=== PATIENT | female | born 1970 | race Caucasian/White ===

== ENCOUNTER 2018-01-01 17:15 | Emergency (ER) | payer OTHER ==
[2018-01-01] MEDS ORDERED: Sodium Chloride 0.9% 500 ML IV STA (18:56)
[2018-01-01 19:26] LABS: BASO # 0.1 K/uL (0.0-0.2); BASO % 1.2 % (0.0-2.0); EOS # 0.2 K/uL (0.0-0.7); EOS % 1.8 % (0.0-4.0); HEMOGLOBIN 10.6 g/dL (12.0-16.0); LYMPH # 1.9 K/uL (1.0-4.3); LYMPH % 20.7 % (20.0-40.0); MEAN CELL VOLUME 62.8 fl (81.0-99.0); MEAN CORPUSCULAR HEMOGLOBIN 19.2 pg (27.0-31.0); MEAN CORPUSCULAR HGB CONC 30.6 g/dL (33.0-37.0); MEAN PLATELET VOLUME 9.7 fl (7.2-11.7); MONO # 0.6 K/uL (0.0-0.8); MONO % 6.2 % (0.0-10.0); NEUT # 6.5 K/uL (1.8-7.0); NEUT % 70.1 % (50.0-75.0); RBC 5.54 Mil/uL (3.80-5.20); RED CELL DISTRIBUTION WIDTH 22.2 % (11.5-14.5); WHITE BLOOD COUNT 9.3 K/uL (4.8-10.8)
--- NOTE | 2018-01-01 19:32 | ED PDOC ---
Syncope/Near Syncope/Dizziness Time Seen by Provider: 01/01/18 18:40 Chief Complaint (Nursing): Abdominal Pain Chief Complaint (Provider): Dizziness History Per: Patient History/Exam Limitations: no limitations Onset/Duration Of Symptoms: Days (1) Additional History Per: Patient Additional Complaint(s): 47yo female, with history of hypertension, asthma, presents to ED with complaints of vertiginous dizziness since yesterday. She reports associated nausea, mild headache, generalized weakness and states she feels tired. She denies any vomiting, abdominal pain. She does report decreased PO intake and decreased appetite due to nausea. Patient states the dizziness worsens with moving her head up or down, and changing positions from laying flat to sitting upright. She denies any focal weaknesses or numbness. Patient also denies any head injury, fall, fever, chills, tinnitus, recent URI symptoms. She has no other medical complaints. Past Medical History Reviewed: Historical Data, Nursing Documentation, Vital Signs Vital Signs: Last Vital Signs Temp 98.6 F 01/01/18 17:59 Pulse 72 01/01/18 17:59 Resp 16 01/01/18 17:59 BP 124/80 01/01/18 17:59 Pulse Ox 98 01/01/18 17:59 - Medical History PMH: Gall Bladder Disease, HTN (Not on medication now) Denies: Chronic Kidney Disease - Surgical History Surgical History: Cholecystectomy, (x 3) - Family History Family History: States: Diabetes, Hypertension - Living Arrangements Living Arrangements: With Family - Social History Current smoker - smoking cessation education provided: Yes Alcohol: Occasional Drugs: Denies - Home Medications Home Medications: Ambulatory Orders Medication Instructions Recorded Famotidine [Pepcid] 20 mg PO DAILY PRN #6 tab 06/12/15 Cyclobenzaprine [Cyclobenzaprine 10 mg PO BID #14 tab 01/16/16 HCl] Ibuprofen [Motrin] 400 mg PO Q6 #30 tab 01/16/16 Cyclobenzaprine [Cyclobenzaprine 10 mg PO TID PRN #20 tab 07/27/16 HCl] Naproxen [Naprosyn] 500 mg PO BID #20 tab 07/27/16 Naproxen 1 tab PO BID PRN #14 tab 07/22/17 diaZEpam [Valium] 5 mg PO Q6 PRN #5 tab 07/22/17 Meclizine HCl 50 mg PO BID PRN #30 tablet 01/01/18 Ondansetron ODT [Zofran ODT] 1 odt PO Q6 PRN #20 odt 01/01/18 Prednisone 50 mg PO DAILY #4 tablet 01/01/18 - Allergies Allergies/Adverse Reactions: Allergies Allergy/AdvReac Type Severity Reaction Status Date / Time No Known Allergies Allergy Verified 01/01/18 17:59 Review of Systems ROS Statement: Except As Marked, All Systems Reviewed And Found Negative (and as per HPI) Constitutional: Positive for: Weakness, Other (feeling tired). Negative for: Fever, Chills ENT: Negative for: Throat Pain, Other (tinnitus) Respiratory: Negative for: Cough Gastrointestinal: Positive for: Nausea. Negative for: Vomiting, Abdominal Pain Neurological: Positive for: Dizziness. Negative for: Weakness Physical Exam - Reviewed Nursing Documentation Reviewed: Yes Vital Signs Reviewed: Yes - Physical Exam Appears: Positive for: No Acute Distress, Uncomfortable Head Exam: Positive for: ATRAUMATIC, NORMAL INSPECTION, NORMOCEPHALIC Skin: Positive for: Normal Color Eye Exam: Positive for: EOMI, PERRL, Nystagmus (subtle nystagmus left lateral gaze) ENT: Negative for: Pharyngeal Erythema, Tonsillar Exudate Neck: Positive for: Painless ROM, Supple Cardiovascular/Chest: Positive for: Regular Rate, Rhythm. Negative for: Murmur Respiratory: Positive for: Normal Breath Sounds. Negative for: Respiratory Distress Gastrointestinal/Abdominal: Positive for: Soft. Negative for: Tenderness Back: Positive for: Normal Inspection. Negative for: Decreased ROM Extremity: Positive for: Normal ROM. Negative for: Deformity Lymphatic: Negative for: Adenopathy Neurologic/Psych: Positive for: Alert, Oriented (x 3), Other (patient unable to tolerate Derek-Hallpike test). Negative for: Motor/Sensory Deficits - Laboratory Results Result Diagrams: 01/01/18 19:18 01/01/18 19:18 - ECG O2 Sat by Pulse Oximetry: 98 (RA) Pulse Ox Interpretation: Normal Medical Decision Making Medical Decision Making: Impression: Vertiginous dizziness Differential (including but not limited to): BPPV, labrynthitis, cerebellar mass , less likely: CVA or bleed, electrolyte abnormalities, anemia Plan: -- Labs -- CT Head w/o contrast -- IV Fluids -- Meclizine 50 mg PO -- Zofran 4mg IVP Time: 2100 CT Head FINDINGS: Brain: Areas of decreased attenuation noted within the periventricular and subcortical white matter likely related to chronic microangiopathic ischemic changes given the patient's stated age. Streak artifact limits evaluation of the skull base. No evidence of acute intracranial hemorrhage. Correlate clinically. Ventricles: Unremarkable. No ventriculomegaly. Bones/joints: Unremarkable. No acute fracture. Soft tissues: Unremarkable. Sinuses: Unremarkable as visualized. No acute sinusitis. Mastoid air cells: Unremarkable as visualized. No mastoid effusion. IMPRESSION: Streak artifact limits evaluation of the skull base. No evidence of acute intracranial hemorrhage. Correlate clinically. Time: 7 Upon re-evaluation, patient reports mild improvement but states the dizziness still persists; Decadron ordered. CT findings and labs discussed with patient as well. 2300 Pt reports improvement. STable for DW. Scribe Attestation: Documented by Elaine Saha acting as a scribe for Celia Morrow MD. Provider Attestation: All medical record entries made by the Scribe were at my direction and personally dictated by me. I have reviewed the chart and agree that the record accurately reflects my personal performance of the history, physical exam, medical decision making, and the department course for this patient. I have also personally directed, reviewed, and agree with the discharge instructions and disposition. Disposition - Clinical Impression Clinical Impression: Vertigo Counseled Patient/Family Regarding: Studies Performed, Diagnosis, Need For Followup, Rx Given - Disposition Referrals: Zia Morgan MD [Family Provider] - 01/02/18 (LLAME A LA OFICINA DE LAUGHLIN DOCTOR POR LA MANANA A HACER GERARDO CITE EN 2-3 CARDENAS) Disposition: Routine/Home Disposition Time: 23:01 Condition: IMPROVED Prescriptions: Meclizine HCl 50 mg PO BID PRN #30 tablet PRN Reason: Dizziness Ondansetron ODT [Zofran ODT] 1 odt PO Q6 PRN #20 odt PRN Reason: Nausea/Vomiting Prednisone 50 mg PO DAILY #4 tablet Instructions: Vertigo (a Type of Dizziness) Forms: [employer] [facility] (Nigerian), [facility] ED School/Work Excuse Print Language: HUNGARIAN
[2018-01-01 19:34] LABS: ALBUMIN 4.3 g/dL (3.5-5.0); ALT/SGPT 35 U/L (9-52); AST/SGOT 28 U/L (14-36); BLOOD UREA NITROGEN 14 mg/dl (7-17); CALCIUM 9.3 mg/dL (8.4-10.2); GFR AFRICAN-AMERICAN > 60; GFR NON-AFRICAN AMERICAN > 60
[2018-01-01] MEDS ORDERED: Dexamethasone 4 mg/1 ml IVP STA (22:00)
[2018-01-01 23:12] VITALS: BP 141/80; PULSE 82; RESP 17; TEMP 98.2
[2018-01-01 23:17] VITALS: O2SAT 98
--- NOTE | 2018-01-02 07:15 | CT ---
PROCEDURE: CT HEAD WITHOUT CONTRAST. HISTORY: DIZZINESS NAUSEA COMPARISON: None available. TECHNIQUE: Axial computed tomography images were obtained through the head/brain without intravenous contrast. Radiation dose: Total exam DLP = 825 mGy-cm. This CT exam was performed using one or more of the following dose reduction techniques: Automated exposure control, adjustment of the mA and/or kV according to patient size, and/or use of iterative reconstruction technique. FINDINGS: HEMORRHAGE: No intracranial hemorrhage. BRAIN: No mass effect or edema. Scattered focal lucencies in the subcortical and periventricular white matter suggestive for chronic microvascular ischemic change. VENTRICLES: Unremarkable. No hydrocephalus. CALVARIUM: Unremarkable. PARANASAL SINUSES: Unremarkable as visualized. No significant inflammatory changes. MASTOID AIR CELLS: Unremarkable as visualized. No inflammatory changes. OTHER FINDINGS: Streak artifact limits evaluation of the skullbase. IMPRESSION: Streak artifact limits evaluation of the skullbase. Chronic microvascular ischemic change. No evidence of acute intracranial hemorrhage. If symptoms persists, consider further evaluation with MRI. These findings were preliminarily reported at 9 p.m. on 01/01/[address] Tim Lin from [facility].
== END 2018-01-01 23:07 | disposition home or self-care (01) ==
LOC: H.ER 17:15
DX: R42 Dizziness and giddiness (principal); I10 Essential (primary) hypertension
CPT/HCPCS: 70450; 80053; 81025; 83735; 84100; 85025; 96361; 96374; 96375; 99284; J1100; J2405; J7040

== ENCOUNTER 2018-02-01 17:47 | Emergency (ER) | payer OTHER ==
[2018-02-01] MEDS ORDERED: Morphine 4 MG/ML VIAL ONE (19:39)
[2018-02-01] MEDS ORDERED: Morphine 4 MG/ML VIAL IVP STA (19:40)
[2018-02-01 19:54] LABS: BASO # 0.1 K/uL (0.0-0.2); BASO % 0.4 % (0.0-2.0); EOS # 0.1 K/uL (0.0-0.7); EOS % 0.7 % (0.0-4.0); HEMOGLOBIN 10.3 g/dL (12.0-16.0); LYMPH # 1.2 K/uL (1.0-4.3); LYMPH % 9.7 % (20.0-40.0); MEAN CORPUSCULAR HGB CONC 31.1 g/dL (33.0-37.0); MEAN PLATELET VOLUME 9.3 fl (7.2-11.7); MONO # 0.9 K/uL (0.0-0.8); MONO % 7.5 % (0.0-10.0); NEUT # 10.1 K/uL (1.8-7.0); NEUT % 81.7 % (50.0-75.0); PLATELET COUNT 317 K/uL (130-400); RBC 5.15 Mil/uL (3.80-5.20); RED CELL DISTRIBUTION WIDTH 23.9 % (11.5-14.5); WHITE BLOOD COUNT 12.3 K/uL (4.8-10.8)
[2018-02-01] MEDS ORDERED: Sodium Chloride 0.9% 50 ML IV ONE (19:57)
[2018-02-01] MEDS ORDERED: Iohexol 300 100 ML IJ ONE (19:57)
[2018-02-01 20:05] LABS: AMYLASE 65 U/L (30-110); GFR AFRICAN-AMERICAN > 60; GFR NON-AFRICAN AMERICAN > 60; LIPASE 55 U/L (23-300)
[2018-02-01 20:07] LABS: ALT/SGPT 28 U/L (9-52); AST/SGOT 38 U/L (14-36); BLOOD UREA NITROGEN 9 mg/dl (7-17)
--- NOTE | 2018-02-01 20:46 | ED PDOC ---
HPI: Dental Pain/Injury Time Seen by Provider: 02/01/18 18:06 Chief Complaint (Nursing): Dental Pain Chief Complaint (Provider): Lower jaw pain History Per: Patient History/Exam Limitations: no limitations Onset/Duration Of Symptoms: Days (x2) Current Symptoms Are (Timing): Still Present Additional Complaint(s): 48 year old female presented to ED with complaint of right sided lower jaw pain and swelling. Patient denies fever and sick contacts and has been taking Advil without relief. She indicates she has taken the mumps vaccine but has no recent travel. Of note, patient was born in [place]. PCP: Zia Camp Past Medical History Reviewed: Historical Data, Nursing Documentation, Vital Signs Vital Signs: Last Vital Signs Temp 99.0 F 02/01/18 18:04 Pulse 83 02/01/18 18:05 Resp 20 02/01/18 18:05 BP 146/92 H 02/01/18 18:05 Pulse Ox 99 02/01/18 18:05 - Medical History PMH: Gall Bladder Disease, HTN (Not on medication now) Denies: Chronic Kidney Disease - Surgical History Surgical History: Cholecystectomy, (x 3) - Family History Family History: States: Diabetes, Hypertension - Social History Current smoker - smoking cessation education provided: Yes Alcohol: Social Drugs: Denies - Home Medications Home Medications: Ambulatory Orders Medication Instructions Recorded Famotidine [Pepcid] 20 mg PO DAILY PRN #6 tab 06/12/15 Cyclobenzaprine [Cyclobenzaprine 10 mg PO BID #14 tab 01/16/16 HCl] Ibuprofen [Motrin] 400 mg PO Q6 #30 tab 01/16/16 Cyclobenzaprine [Cyclobenzaprine 10 mg PO TID PRN #20 tab 07/27/16 HCl] Naproxen [Naprosyn] 500 mg PO BID #20 tab 07/27/16 Naproxen 1 tab PO BID PRN #14 tab 07/22/17 diaZEpam [Valium] 5 mg PO Q6 PRN #5 tab 07/22/17 Meclizine HCl 50 mg PO BID PRN #30 tablet 01/01/18 Ondansetron ODT [Zofran ODT] 1 odt PO Q6 PRN #20 odt 01/01/18 Prednisone 50 mg PO DAILY #4 tablet 01/01/18 Clindamycin [Cleocin] 300 mg PO TID #21 cap 02/01/18 Naproxen [Naprosyn] 500 mg PO BID PRN #14 tab 02/01/18 oxyCODONE/Acetaminophen [Percocet 1 - 2 ea PO Q8 PRN #12 tab 02/01/18 5/325 mg Tab] - Allergies Allergies/Adverse Reactions: Allergies Allergy/AdvReac Type Severity Reaction Status Date / Time No Known Allergies Allergy Verified 01/01/18 17:59 Review of Systems ROS Statement: Except As Marked, All Systems Reviewed And Found Negative Constitutional: Negative for: Fever ENT: Positive for: Other (right sided lower jaw pain and swelling) Physical Exam - Reviewed Nursing Documentation Reviewed: Yes Vital Signs Reviewed: Yes - Physical Exam Appears: Positive for: Non-toxic. Negative for: No Acute Distress (mild painful distress) Head Exam: Positive for: ATRAUMATIC, NORMAL INSPECTION Skin: Positive for: Normal Color, Warm Eye Exam: Positive for: Normal appearance, EOMI, PERRL ENT: Positive for: TM Is/Are (non-erythematous, non-bulging b/l), Other (R lower jaw tenderness and swelling extending into submandibular area; no trismus ; able to swallow saliva; airway is patent). Negative for: Pharyngeal Erythema , Tonsillar Exudate, Tonsillar Swelling Cardiovascular/Chest: Positive for: Regular Rate, Rhythm. Negative for: Tachycardia Respiratory: Positive for: Normal Breath Sounds. Negative for: Wheezing, Respiratory Distress Gastrointestinal/Abdominal: Positive for: Normal Exam, Soft. Negative for: Tenderness, Organomegaly Extremity: Positive for: Normal ROM Neurologic/Psych: Positive for: Alert, Oriented. Negative for: Aphasia, Facial Droop - Laboratory Results Result Diagrams: 02/01/18 19:48 02/01/18 19:48 - ECG O2 Sat by Pulse Oximetry: 99 (RA) Pulse Ox Interpretation: Normal - Physician Consult Information Physician Contacted: Fritz Curiel Outcome Of Conversation: Dr. Curiel evaluate patient and placed patient in droplet precautions. Dr. Curiel agrees with care. Medical Decision Making Medical Decision Making: Initial Impression: Right sided jaw pain Initial Plan: CT Neck Amylase CMP Lipase CBC Mumps virus Morphine 4mg IV Ampicillin 3gm Sodium chloride 100mL IV Mumps PCR cheek swab CT soft tissue neck: Right buccal mucosal space abscess origin most likely the right lower first premolar; dental disease with multiple caries and apical erosions; soft tissue swelling and reactive adenopathy [place]: reactive. Pt. informed of results and advised to quarantine herself and to keep away from children and females. Also advised to f/u with dentist for further evaluation and is to return to ED immediately if fever develops or symptoms worsen. Also advised to refrain from physical activity due to risk of spleenic rupture. Informed that she will be contacted by Lana Marin, infectious disease coordinator. Lana Marin and Dr. Campbell informed pt. Case d/w Dr. Anna and agrees with care. Pt. searched [place] [facility] which shows last narcotic Rx was for Valium on 07/2017. Pt. will be prescribed Clindamycin, Percocet, and naproxen. Scribe Attestation: Documented by Yusef Morgan acting as a scribe for Valdemar Morocho Provider Scribe Attestation: All medical record entries made by the Scribe were at my direction and personally dictated by me. I have reviewed the chart and agree that the record accurately reflects my personal performance of the history, physical exam, medical decision making, and the department course for this patient. I have also personally directed, reviewed, and agree with the discharge instructions and disposition. Disposition - Clinical Impression Clinical Impression: Dental abscess, Infectious mononucleosis - Patient ED Disposition Is Patient to be Admitted: No - Disposition Referrals: Jeevan Arceo [Outside] Disposition: Routine/Home Disposition Time: 22:43 Condition: STABLE Additional Instructions: EXPECT A CALL FROM LANA MARIN FOLLOW UP WITH YOUR DENTIST FOR FURTHER EVALUATION RETURN TO ED IMMEDIATELY IF SYMPTOMS WORSEN Prescriptions: Clindamycin [Cleocin] 300 mg PO TID #21 cap Naproxen [Naprosyn] 500 mg PO BID PRN #14 tab PRN Reason: Pain oxyCODONE/Acetaminophen [Percocet 5/325 mg Tab] 1 - 2 ea PO Q8 PRN #12 tab PRN Reason: Pain Instructions: Mononucleosis (DC), Dental Pain (DC) Forms: [facility] (Slovak) Print Language: BELARUSIAN
[2018-02-01 20:50] LABS: BANDS 1 % (0-2); BASOPHIL 1 % (0-2); LYMPHOCYTE 4 % (20-50); MONOCYTE 8 % (0-10); NEUTROPHIL 86 % (42-75); TOTAL CELLS COUNTED 100
[2018-02-01 20:51] LABS: ANISOCYTOSIS MODERATE; HYPOCHROMIC MODERATE; MICROCYTOSIS SLIGHT; POIKILOCYTOSIS MODERATE; TARGET CELLS SLIGHT
[2018-02-01 20:52] LABS: OVALOCYTES SLIGHT; STOMATOCYTES SLIGHT; TEARDROP CELLS SLIGHT
[2018-02-01 20:54] LABS: PLATELET ESTIMATE NORMAL (NORMAL); POLYCHROMIC SLIGHT
--- NOTE | 2018-02-01 22:05 | CT ---
EXAM: CT Neck With Intravenous Contrast EXAM DATE/TIME: 02/01/2018 7:09 PM CLINICAL HISTORY: 48 years old, female; Pain; Other: Submandidular swelling; Additional info: Submandibular swelling TECHNIQUE: Axial computed tomography images of the neck with intravenous contrast. All CT scans at this facility use one or more dose reduction techniques, viz.: automated exposure control; ma/kV adjustment per patient size (including targeted exams where dose is matched to indication; i.e. head); or iterative reconstruction technique. Coronal and sagittal reformatted images were created and reviewed. CONTRAST: 90 mL of [id number] administered intravenously. COMPARISON: There are no prior studies for comparison. FINDINGS: Brain: No acute abnormalities are seen in visualized portion of the brain. Sinuses: There is no acute sinusitis. Ears and mastoids: Middle ears and mastoids are unremarkable Orbits: Orbital contents are unremarkable. Tonsils and adenoids: Tonsils and adenoids are unremarkable. Deep facial spaces: Parapharyngeal spaces are symmetric. Salivary glands: Parotid and submandibular glands are unremarkable. Dental: There is right facial soft tissue swelling extending into the submandibular soft tissues bilaterally. There is a 5.9 x 16 x 15 mm right buccal mucosal space abscess. There is an adjacent apical erosion in the mandible at the right first lower premolar. There are dental caries bilaterally. There is streak from dental fillings. Airway: Airway is unremarkable Thyroid: Thyroid is unremarkable. Vascular: Vascular structures are unremarkable. Nodes: There are enlarged submandibular nodes bilaterally. There is shotty cervical adenopathy. Lung apices: Lung apices are clear. Bony structures: IMPRESSION: Right buccal mucosal space abscess origin most likely the right lower first premolar; dental disease with multiple caries and apical erosions; soft tissue swelling and reactive adenopathy Additional nonemergent findings as described above.
[2018-02-01 22:09] LABS: MEAN CELL VOLUME 64.2 fl (81.0-99.0)
[2018-02-01 23:00] VITALS: BP 150/91; PULSE 72; RESP 17; TEMP 98.3
[2018-02-01 23:26] VITALS: O2SAT 99
== END 2018-02-01 23:24 | disposition home or self-care (01) ==
LOC: H.ER 17:47
DX: K04.7 Periapical abscess without sinus (principal); B27.00 Gammaherpesviral mononucleosis without complication; I10 Essential (primary) hypertension
CPT/HCPCS: 70491; 80053; 81025; 82150; 83690; 85025; 86308; 86735; 87040; 87070; 87430; 96365; 96375; 99283; J0295; J1885; J2270; Q9967

== ENCOUNTER 2018-05-21 19:10 | Emergency (ER) | payer OTHER ==
[2018-05-21 19:39] VITALS: BP 131/85; PULSE 71; RESP 16; TEMP 98.3; O2SAT 100
--- NOTE | 2018-05-21 20:47 | ED PDOC ---
Syncope/Near Syncope/Dizziness Time Seen by Provider: 05/21/18 20:13 Chief Complaint (Nursing): Dizziness/Lightheaded Chief Complaint (Provider): Dizziness History Per: Patient History/Exam Limitations: no limitations Onset/Duration Of Symptoms: Days (x2) Current Symptoms Are (Timing): Still Present Additional Complaint(s): 48 year old female presents to the ED complaining of dizziness associated with nausea since yesterday. Patient denies vomiting, headache, CP, and palpitations. PMD: Zia Camp Past Medical History Reviewed: Historical Data, Nursing Documentation, Vital Signs Vital Signs: Last Vital Signs Temp 98.3 F 05/21/18 19:37 Pulse 71 05/21/18 19:37 Resp 16 05/21/18 19:37 BP 131/85 05/21/18 19:37 Pulse Ox 100 05/21/18 19:37 - Medical History PMH: Gall Bladder Disease, HTN (Not on medication now) Denies: Chronic Kidney Disease - Surgical History Surgical History: Cholecystectomy, (x 3) - Family History Family History: States: Diabetes, Hypertension - Home Medications Home Medications: Ambulatory Orders Medication Instructions Recorded Famotidine [Pepcid] 20 mg PO DAILY PRN #6 tab 06/12/15 Cyclobenzaprine [Cyclobenzaprine 10 mg PO BID #14 tab 01/16/16 HCl] Ibuprofen [Motrin] 400 mg PO Q6 #30 tab 01/16/16 Cyclobenzaprine [Cyclobenzaprine 10 mg PO TID PRN #20 tab 07/27/16 HCl] Naproxen [Naprosyn] 500 mg PO BID #20 tab 07/27/16 Naproxen 1 tab PO BID PRN #14 tab 07/22/17 diaZEpam [Valium] 5 mg PO Q6 PRN #5 tab 07/22/17 Meclizine HCl 50 mg PO BID PRN #30 tablet 01/01/18 Ondansetron ODT [Zofran ODT] 1 odt PO Q6 PRN #20 odt 01/01/18 Prednisone 50 mg PO DAILY #4 tablet 01/01/18 Clindamycin [Cleocin] 300 mg PO TID #21 cap 02/01/18 Naproxen [Naprosyn] 500 mg PO BID PRN #14 tab 02/01/18 oxyCODONE/Acetaminophen [Percocet 1 - 2 ea PO Q8 PRN #12 tab 02/01/18 5/325 mg Tab] - Allergies Allergies/Adverse Reactions: Allergies Allergy/AdvReac Type Severity Reaction Status Date / Time No Known Allergies Allergy Verified 05/21/18 19:36 Review of Systems ROS Statement: Except As Marked, All Systems Reviewed And Found Negative Cardiovascular: Negative for: Chest Pain, Palpitations Gastrointestinal: Positive for: Nausea. Negative for: Vomiting Neurological: Positive for: Dizziness. Negative for: Headache Physical Exam - Reviewed Nursing Documentation Reviewed: Yes Vital Signs Reviewed: Yes - Physical Exam Appears: Positive for: Non-toxic, No Acute Distress Head Exam: Positive for: ATRAUMATIC, NORMAL INSPECTION, NORMOCEPHALIC Skin: Positive for: Normal Color, Warm, Dry Eye Exam: Positive for: Normal appearance Neck: Positive for: Normal, Painless ROM Cardiovascular/Chest: Positive for: Regular Rate, Rhythm. Negative for: Murmur Respiratory: Positive for: Normal Breath Sounds. Negative for: Wheezing, Respiratory Distress Gastrointestinal/Abdominal: Positive for: Normal Exam, Soft. Negative for: Tenderness Extremity: Positive for: Normal ROM Neurologic/Psych: Positive for: Alert, Oriented. Negative for: Motor/Sensory Deficits - ECG O2 Sat by Pulse Oximetry: 100 (RA) Pulse Ox Interpretation: Normal Medical Decision Making Medical Decision Making: Initial Impression: Dizziness Initial Plan: --ECG --CMP --T4 Stat --TSH --ED urine --ED urine dipstick --CBC --Antivert 25mg PO Scribe Attestation: Documented by Yusef Morgan acting as a scribe for Antonio Machado MD. Provider Scribe Attestation: All medical record entries made by the Scribe were at my direction and personally dictated by me. I have reviewed the chart and agree that the record accurately reflects my personal performance of the history, physical exam, medical decision making, and the department course for this patient. I have also personally directed, reviewed, and agree with the discharge instructions and disposition. Disposition - Clinical Impression Clinical Impression: Dizziness - Patient ED Disposition Is Patient to be Admitted: No - Disposition Disposition: Left W/O Treatment Disposition Time: 22:54 Condition: FAIR Forms: [facility] (Libyan)
== END 2018-05-21 22:00 | disposition left against medical advice (07) ==
LOC: H.ER 19:10
DX: R42 Dizziness and giddiness (principal); I10 Essential (primary) hypertension

== ENCOUNTER 2018-09-19 22:08 | Emergency (ER) | payer MEDICAID, OTHER ==
[2018-09-19 23:24] VITALS: BP 164/103; PULSE 71; RESP 16; TEMP 99.3; O2SAT 99
== END 2018-09-20 01:15 | disposition left against medical advice (07) ==
LOC: H.ER 22:08
DX: Z02.89 Encounter for other administrative examinations (principal)